=== PATIENT | male | born 1940 | race Caucasian/White ===

== ENCOUNTER → 2016-12-14 21:51 | Outpatient (CLI) | payer MEDICARE ==
[2016-12-14 22:29] LABS: BASOPHILS 0.6 % (0-2); EOSINOPHILS 2.4 % (0-7); HEMATOCRIT 50.4 % (42.0-54.0); HEMOGLOBIN 17.4 g/dL (13.5-17.5); IMMATURE GRANULOCYTES 0.2 % (0-5); LYMPHOCYTES 23.3 % (15-50); MCHC 34.5 g/dL (31.0-37.0); MCV 95.6 fL (80.0-100.0); MONOCYTES 11.2 % (2-11); NEUTROPHILS 62.3 % (40-80); RBC 5.27 10x6/uL (4.20-6.10); RDW 13.9 % (11.5-14.5)
[2016-12-14 22:36] LABS: PLATELET COUNT 48 10x3/uL (130-400)
[2016-12-14 22:57] LABS: PLATELET ESTIMATE NORMAL
[2016-12-14 22:58] LABS: ANION GAP 13.6 mmol/L (8-16); CALCIUM 8.8 mg/dL (8.5-10.1); CARBON DIOXIDE 26.5 mmol/L (21.0-32.0); CHOL - HDL RATIO 2.5 ratio (2.3-4.9); CREATININE - SERUM 1.2 mg/dL (0.6-1.3); LDL-HDL RATIO 1.2 ratio (1.5-3.5); POTASSIUM - SERUM 4.1 mmol/L (3.5-5.1)
== END | disposition home or self-care (01) ==
LOC: D.LABREF 21:51
PROVIDERS: Internal Medicine Interventional Cardiology
DX: E78.5 Hyperlipidemia, unspecified (principal); I10 Essential (primary) hypertension; Z00.00 Encounter for general adult medical examination without abnormal findings

== ENCOUNTER → 2016-12-20 20:46 | Outpatient (CLI) | payer MEDICARE, BC ==
[2016-12-20 21:27] LABS: EOSINOPHILS 2.2 % (0-7); HEMATOCRIT 49.2 % (42.0-54.0); HEMOGLOBIN 16.9 g/dL (13.5-17.5); IMMATURE GRANULOCYTES 0.2 % (0-5); LYMPHOCYTES 25.6 % (15-50); MCH 33.1 pg (26.0-34.0); MCHC 34.3 g/dL (31.0-37.0); MCV 96.3 fL (80.0-100.0); MONOCYTES 13.5 % (2-11); NEUTROPHILS 57.5 % (40-80); RBC 5.11 10x6/uL (4.20-6.10); RDW 13.9 % (11.5-14.5); WBC 4.1 10x3/uL (4.8-10.8)
[2016-12-20 21:34] LABS: PLATELET COUNT 91 10x3/uL (130-400)
== END | disposition home or self-care (01) ==
LOC: D.LABREF 20:46
PROVIDERS: Internal Medicine Interventional Cardiology
DX: I10 Essential (primary) hypertension (principal)

== ENCOUNTER → 2018-01-10 18:27 | Outpatient (CLI) | payer MEDICARE, BC ==
[2018-01-10 20:46] LABS: CHOL - HDL RATIO 2.6 ratio (2.3-4.9); LDL-HDL RATIO 1.3 ratio (1.5-3.5)
== END | disposition home or self-care (01) ==
LOC: D.LABREF 18:27
PROVIDERS: Internal Medicine Interventional Cardiology
DX: E78.5 Hyperlipidemia, unspecified (principal)